=== PATIENT | male | born 1970 | race African-American/Black ===

== ENCOUNTER 2016-09-06 07:00 | Inpatient (IN) | payer OTHER ==
[~2016-09-06] VITALS: Ht 177.8 cm; Wt 100.0 kg
[2016-09-06] MEDS ORDERED: LISI-662 PO (07:02)
[2016-09-06] MEDS ORDERED: HydrALAZINE HCL 20 MG/ML VIAL IVP ONE (07:45)
[2016-09-06] MEDS ORDERED: EPINEPHrine 1:1,000 [1 MG/ML] AMP IM ONE (07:45)
[2016-09-06] MEDS ORDERED: MethylPREDNISolone SOD SUCC 125 MG/2 ML VIAL IVP ONE (07:45)
[2016-09-06] MEDS ORDERED: DiphenhydrAMINE HCL 50 MG/ML VIAL IVP ONE (07:45)
[2016-09-06] MEDS ORDERED: RANITIDINE HCL 25 MG/ML 2 ML VIAL IVP ONE (08:00)
[2016-09-06 08:06] LABS: HEMOGLOBIN 16.1 g/dL (13.5-17.5); MEAN CORPUSCULAR HEMOGLOBIN 24.8 pg (26.0-34.0); MEAN CORPUSCULAR HGB CONC 34.3 G/dL (31.0-37.0); MEAN CORPUSCULAR VOLUME 72 fL (80-100); PLATELET COUNT (AUTO) 160 K/uL (150-450); RED BLOOD CELL COUNT(AUTO) 6.49 MIL/uL (4.50-5.90); RED CELL DISTRIBUTION WIDTH 17.4 % (11.5-14.5); WHITE BLOOD COUNT (AUTO) 8.7 K/uL (4.5-11.0)
[2016-09-06 08:16] LABS: ANION GAP 9 mmol/L (8-16); CALCIUM, TOTAL 9.3 mg/dL (8.8-10.5); CARBON DIOXIDE 30 mmol/L (22-29); CHLORIDE 99 mmol/L (98-107); CREATININE 1.29 mg/dL (0.60-1.30); GLOMERULAR FILTR. RATE CALC > 60 mL/min (>60); POTASSIUM 3.6 mmol/L (3.5-5.1); SODIUM SERUM 138 mmol/L (136-145); UREA NITROGEN, BLOOD 12 mg/dL (7-18)
[2016-09-06 08:21] LABS: ALANINE AMINOTRANSFERASE 70 U/L (12-78); ALBUMIN 4.3 g/dL (3.4-5.0); ASPARTATE AMINOTRANSFERASE 58 U/L (15-37); BILIRUBIN,TOTAL 0.7 mg/dL (0.1-1.0); TOTAL PROTEIN, SERUM 8.9 g/dL (6.4-8.2)
[2016-09-06] MEDS ORDERED: LABETALOL HCL 5 MG/ML 20 ML VIAL IVP ONE ×2 (08:30→10:30)
[2016-09-06] MEDS ORDERED: ACETAMINOPHEN 325 MG TABLET PO PRN (09:15)
[2016-09-06] MEDS ORDERED: ONDANSETRON HCL 4 MG/2 ML VIAL IVP PRN (09:15)
[2016-09-06] MEDS ORDERED: 0.9% SODIUM CHLORIDE 10 ML SYRINGE IVP PRN (09:15)
[2016-09-06 09:16] LABS: BAND NEUTROPHILS % (MANUAL) 1 % (1-5); BASOPHILS % (MANUAL) 1 % (0-2); LYMPHOCYTES % (MANUAL) 15 % (22-44); TOTAL CELLS COUNTED 100
[2016-09-06 09:17] LABS: RBC MORPHOLOGY COMMENT ABNORMAL R
[2016-09-06] MEDS: LABETALOL HCL 100 MG TABLET PO ONE ×2 (10:14→10:30)
[2016-09-06 11:49] VITALS: BP 156/105
[2016-09-06] MEDS: LISINOPRIL 20 MG TABLET PO SCH (12:31)
[2016-09-06] MEDS: RANITIDINE HCL 150 MG TABLET PO SCH ×2 (12:32→20:45)
[2016-09-06] MEDS: NICOTINE 14 MG/24 HOUR PATCH TD SCH (12:32)
[2016-09-06] MEDS: DiphenhydrAMINE HCL 25 MG CAPSULE PO SCH ×3 (12:32→23:57)
[2016-09-06] MEDS: MethylPREDNISolone SOD SUCC 125 MG/2 ML VIAL IVP SCH ×3 (12:32→23:57)
[2016-09-06] MEDS ORDERED: INFLUENZA VIRUS VACCINE QVS 2016-17 (3YR+)/PF 60 MCG/0.5 ML SYRINGE IM ONE (14:00)
[2016-09-06 15:40] VITALS: BP 153/110
[2016-09-06 15:54] VITALS: BP 167/110
[2016-09-06] MEDS: CloNIDine HCL 0.1 MG TABLET PO PRN (15:57)
[2016-09-06] MEDS: HEPARIN SODIUM,PORCINE 5,000 UNITS/ML VIAL SQ SCH ×2 (15:57→23:57)
[2016-09-06 17:44] VITALS: BP 147/101
[2016-09-06 19:48] VITALS: BP 164/116
[2016-09-06] MEDS ORDERED: HydrALAZINE HCL 20 MG/ML VIAL IVP PRN (20:45)
[2016-09-06 23:31] VITALS: BP 147/97
[2016-09-07 04:53] VITALS: BP 144/98
[2016-09-07] MEDS: MethylPREDNISolone SOD SUCC 125 MG/2 ML VIAL IVP SCH ×2 (05:51→11:36)
[2016-09-07] MEDS: DiphenhydrAMINE HCL 25 MG CAPSULE PO SCH ×2 (05:51→11:36)
[2016-09-07] MEDS: NICOTINE 14 MG/24 HOUR PATCH TD SCH (08:36)
[2016-09-07] MEDS: LISINOPRIL 20 MG TABLET PO SCH (08:36)
[2016-09-07] MEDS: RANITIDINE HCL 150 MG TABLET PO SCH (08:36)
[2016-09-07] MEDS: HEPARIN SODIUM,PORCINE 5,000 UNITS/ML VIAL SQ SCH (08:36)
[2016-09-07] MEDS ORDERED: PANTOPRAZOLE SODIUM 40 MG DR TABLET PO SCH (09:00)
[2016-09-07] MEDS: CloNIDine HCL 0.1 MG TABLET PO PRN (11:36)
[2016-09-07] MEDS ORDERED: DIPH25 PO (11:59)
[2016-09-07] MEDS ORDERED: PRED10TA3 PO (11:59)
[2016-09-07] MEDS ORDERED: RANI150T7 PO (11:59)
[2016-09-07 12:04] VITALS: BP 181/112
== END 2016-09-07 14:00 | disposition home or self-care (01) | DRG 811 ==
LOC: EMS 07:01 → 6N 10:33
PROVIDERS: ADMIT Hospitalist; ATTEND Hospitalist
DX: T78.3XXA Angioneurotic edema, initial encounter (principal); I10 Essential (primary) hypertension; T46.4X5A Adverse effect of angiotensin-converting-enzyme inhibitors, initial encounter; F17.210 Nicotine dependence, cigarettes, uncomplicated; F12.90 Cannabis use, unspecified, uncomplicated; Z28.21 Immunization not carried out because of patient refusal; Z79.899 Other long term (current) drug therapy; Y92.89 Other specified places as the place of occurrence of the external cause; Y93.89 Activity, other specified; Y99.8 Other external cause status
CPT/HCPCS: 96374; 96375; 99291; J0171; J0360; J1200; J1644; J2780; J2930; J3490